=== PATIENT | male | born 1955 | race Caucasian/White ===

== ENCOUNTER → 2020-05-10 | Outpatient (CLI) | payer MEDICARE | LOC: GMA MATASK 10:51 | PROVIDERS: ATTEND Family Medicine | DX: Z12.5 Encounter for screening for malignant neoplasm of prostate (principal); I10 Essential (primary) hypertension | CPT/HCPCS: 84443; 84550; G0103 ==

== ENCOUNTER 2020-07-09 12:14 | Emergency (ER) | payer MEDICARE | END 2020-07-09 14:53 | disposition left against medical advice (07) | LOC: ER 12:14 | DX: M54.2 Cervicalgia (principal); Z53.21 Procedure and treatment not carried out due to patient leaving prior to being seen by health care provider ==

== ENCOUNTER → 2020-07-14 | Outpatient (CLI) | payer MEDICARE ==
--- NOTE | 2020-07-15 09:08 | MRI ---
EXAM DESCRIPTION: Cervical Spine: MRI. CLINICAL HISTORY: 64 years Male CERVICALGIA COMPARISON: Cervical radiographs July 10. TECHNIQUE: Multiplanar, high-field MRI, multiple sequences, non-contrast Cervical spine. FINDINGS: ACDF C4-C5 with interspace osseous fusion almost completely. Uncinate spur on the left neighboring the neuroforamen. Right neuroforamen and canal are patent. No complications. C5-C6: Disc space loss and endplate reactive changes bilaterally, more prominent right midline. Uncinate spur on the right with neural foraminal stenosis. 2 mm grade 1 retrolisthesis. Posterior disc bulge abutting the cord. Moderate narrowing left neural foramen. Bilateral facet joints are unremarkable. Posterior ligamentous thickening. Moderate canal narrowing. C6-C7: ACDF with essentially complete interspace osseous fusion with less effusion in the left side of the disc space. Mild narrowing of the left neural foramen. Canal and right neuroforamen are patent. No complications. C3-C4: Disc desiccation with anterior disc space loss and minimal endplate ridging. Grade 1 anterolisthesis 3 mm. Minimal posterior disc bulge. Uncinate spur on the right with moderate neural foraminal narrowing. Left neural foramen patent. Mild to moderate canal narrowing. Facet joints are unremarkable. C7-T1: Disc desiccation minimal posterior bulge. Disc space maintained. Canal and neural foramina are patent and facet are negative. Normal signal in the C2-C3 with no bulging. Trace anterolisthesis. Normal signal in the T1-T2 disc with no bulging. Disc spaces preserved. Canal and neural foramina are patent. Facet joints are negative. Spinal alignment kyphosis C2-C4. No cord compression or cord edema. Atlantoaxial joint with small periarticular cysts. Base of the cerebellar tonsils is at the level of the foramen magnum. Paravertebral soft tissues negative.. Vertebral bodies are not compressed at any level. Otherwise normal marrow signal in the remaining vertebral bodies and the posterior elements. IMPRESSION: 1. ACDF at C4-C5 and C6-C7 with no complications. Essentially complete inter-space osseous fusion at both levels. 2. Spondylosis at C5-C6 more severe on the right with neural foraminal stenosis. Correlate for right C5-6 radiculopathy. 3. C3-C4 disc desiccation and grade 1 anterolisthesis. Uncinate spur on the right with moderate neural foraminal narrowing. 4. Please refer to findings for discussion of results at other disc space levels. Electronically signed by: Charbel Arvizu MD 07/15/2020 9:06 AM [facility]
== END ==
LOC: MRI 07:48
PROVIDERS: ATTEND Family Medicine
DX: M47.22 Other spondylosis with radiculopathy, cervical region (principal); M43.12 Spondylolisthesis, cervical region; M25.78 Osteophyte, vertebrae; Z98.1 Arthrodesis status

== ENCOUNTER 2020-09-04 11:05 | Emergency (ER) | payer MEDICARE ==
[2020-09-04] MEDS ORDERED: LIDOCAINE 4% TOPICAL 40 MG/ML SYG TOP ONE ×2 (11:23→11:52)
[2020-09-04 11:51] VITALS: O2SAT 94
--- NOTE | 2020-09-04 11:55 | RAD ---
EXAMINATION: Chest,2 Views. HISTORY: 65 years Male. persistent hiccups. . . TECHNIQUE: XR CHEST 2 VIEWS COMPARISON: 05/10/2020 FINDINGS: Cervical spine surgical hardware is in place consisting of plate and screws. There is degenerative spondylosis of the thoracic spine. There is no pulmonary consolidation. No evidence of pleural effusion. No radiographically visible pneumothorax. Cardiac silhouette size is normal. No radiographic evidence of vascular congestion. IMPRESSION: No radiographic evidence of definite acute pulmonary disease in the visualized chest Electronically signed by: Kavon Tinoco MD 09/04/2020 11:53 AM [facility]
[2020-09-04] MEDS ORDERED: predniSONE 20 MG TAB PO ONE (12:07)
[2020-09-04] MEDS ORDERED: KETOROLAC TROMETHAMINE INJ 30 MG/ML VIAL IM ONE (12:07)
--- NOTE | 2020-09-04 12:11 | ED.PDOC ---
History of Present Illness - General Chief Complaint: General Stated Complaint: Shaking/jerking motion started last night Time Seen by Provider: 09/04/20 11:07 Source: patient Exam Limitations: no limitations - History of Present Illness Initial Comments: The patient is a 65-year-old male presented to the emergency secondary to what appears to be hiccups that started yesterday afternoon when he was putting in a new denture. He had had numerous teeth removed to have the denture plate formed. This was done just 4 or 5 days ago. No evidence of overt infection. The patient does have chronic lung disease and does have borderline hypoxia at baseline. He has not been doing his breathing treatments frequently and his oxygen levels do drop down to around 87% on room air at times before they rebound back into the low 90s. He has been on oxygen in the past but does not currently have any oxygen. Again he has not been doing his breathing treatments for the last 3 days. No syncope or near syncope. No sore throat. Oral procedural sites appear appropriate. Timing/Duration: 24 hours Severity: moderate Improving Factors: nothing Worsening Factors: nothing Associated Symptoms: denies symptoms Allergies/Adverse Reactions: Allergies NO KNOWN ALLERGY Allergy (Verified 09/04/20 11:51) Home Medications: Ambulatory Orders Sucralfate Tab [Carafate Tab] 1 gm PO QID #60 tab 09/04/20 chlorproMAZINE HCL [Thorazine] 25 mg PO Q6HR PRN #20 tab 09/04/20 predniSONE [Prednisone] 40 mg PO DAILY #7 day 09/04/20 Review of Systems - Review of Systems Constitutional: States: malaise EENTM: States: mouth pain Respiratory: States: no symptoms reported Cardiology: States: no symptoms reported Gastrointestinal/Abdominal: Denies: no symptoms reported Genitourinary: States: no symptoms reported Musculoskeletal: States: no symptoms reported Skin: States: no symptoms reported Neurological: States: no symptoms reported Endocrine: States: no symptoms reported All other Systems: No Change from Baseline Past Medical History (General) - Patient Medical History Hx Seizures: No Hx Stroke: No Hx of COPD: Yes Hx Cardiac Disorders: Yes - stents Hx Congestive Heart Failure: No Hx Hypertension: Yes Hx Diabetes: No Hx Gastroesophageal Reflux: Yes Hx Cancer: No Surgical History: appendectomy, other - Vaccination History Hx Influenza Vaccination: Yes Hx Pneumococcal Vaccination: Yes - Social History Hx Tobacco Use: Yes Hx Alcohol Use: Yes Hx Substance Use: No Hx Substance Use Treatment: No Hx Depression: No - Female History Patient is a Female of Child Bearing Age (10 -59 yrs old): No Patient : No Family Medical History - Family History Mother Family History: No Known Physical Exam - Physical Exam General Appearance: Alert, Anxious, No apparent distress Eye Exam: bilateral normal Ears, Nose, Throat: hearing grossly normal, other - See history of present illness Neck: full range of motion, supple Respiratory: lungs clear - Soft breath sounds. No obvious wheezing., normal breath sounds, no respiratory distress, no accessory muscle use Cardiovascular/Chest: normal peripheral pulses, regular rate, rhythm, no edema Peripheral Pulses: radial,right: 2+, radial,left: 2+ Gastrointestinal/Abdominal: non tender, soft Rectal Exam: deferred Back Exam: no vertebral tenderness Extremity: normal range of motion, no pedal edema, normal capillary refill Neurologic: tandem mill roller II-XII nml as tested, alert, normal mood/affect, oriented x 3 Skin Exam: normal color Comments: Vital Signs - 24 hr 09/04/20 09/04/20 11:05 11:06 Temperature 98.3 F Pulse Rate [ 97 H 97 H Pulse ox] Respiratory 20 20 Rate Blood Pressure 158/78 [L arm] O2 Sat by Pulse 94 L Oximetry Progress - Progress Progress: 09/04/20 12:12 The patient is a 65-year-old male presenting with what appears to be primarily uncontrolled hiccups. This may have been triggered by his recent procedure. He can continue to use an oral lidocaine on his gums to help reduce irritation. Additionally the patient does have borderline intermittent hypoxia related to chronic lung disease. He does need to get back on his nebulizer treatments about every 4 hours for the next few days. Reduction of hypoxia may also reduce the drive for the hiccups. He will be placed on oral prednisone for the next week which should help actually both processes above. He will also be written for 30 days of Thorazine for as needed use for the hiccups. He can expect to feel drowsy with this. I do want him to follow back up with his primary care doctor next week primarily for follow-up of his respiratory status. His oxygen levels are remaining low and he may need to go back on oxygen short- term. Chest x-ray and clinical exam do not indicate any evidence for pneumonia. He is already taking amoxicillin from his dentist. ER warnings are given for any worsening. richard [email or web address] - Results/Orders Results/Orders: Chest x-ray shows no obvious acute pathology. Chronic emphysematous changes are noted. EKG shows normal sinus rhythm at 97 bpm. Left axis deviation with left bundle branch block. There is also right bundle branch block. Difficult to interpret otherwise. Laboratory Tests 09/04/20 09/04/20 09/04/20 11:39 11:39 11:39 WBC 5.8 RBC 5.51 Hgb 14.9 Hct 45.5 MCV 82.6 MCH 27.0 MCHC 32.6 L RDW 13.7 Plt Count 194 MPV 7.1 L Absolute Neuts (auto) 4.20 Absolute Lymphs (auto) 0.80 L Absolute Monos (auto) 0.50 Absolute Eos (auto) 0.20 Absolute Basos (auto) 0.00 Neutrophils % 72.2 Lymphocytes % 14.4 L Monocytes % 9.4 H Eosinophils % 3.3 Basophils % 0.7 PT 9.9 INR 1.00 PTT (SP) 27.7 D-Dimer, Quantitative 360.0 Sodium 139 Potassium 4.3 Chloride 106 Carbon Dioxide 24 Anion Gap 13.3 BUN 14 Creatinine 1.29 BUN/Creatinine Ratio 10.9 Random Glucose 132 H Serum Osmolality 279.9 Calcium 9.3 Magnesium 2.2 Total Bilirubin 0.8 AST 25 ALT 27 Alkaline Phosphatase 74 Creatine Kinase 83 CK-MB (CK-2) 2.8 CK-MB (CK-2) % Not Reportable Troponin I < 0.02 B-Natriuretic Peptide 86.4 Serum Total Protein 7.6 Albumin 4.4 Globulin 3.2 Albumin/Globulin Ratio 1.4 TSH 1.14 - EKG/XRAY/CT CT Ordered: Yes Departure - Departure Clinical Impression: Hiccups Emphysema lung Qualifiers: Emphysema type: unspecified Qualified Code(s): J43.9 - Emphysema, unspecified Disposition: Discharge to Home or Self Care Condition: Fair Departure Forms: ED Discharge - Pt. Copy, Patient Portal Self Enrollment Instructions: Hiccups Diet: regular diet Activity: increase activity as tolerated Referrals: Dallas Judd MD [Primary Care Provider] - 1-2 Weeks Prescriptions: chlorproMAZINE HCL [Thorazine] 25 mg PO Q6HR PRN #20 tab PRN Reason: Gas Or Gas Pain Sucralfate Tab [Carafate Tab] 1 gm PO QID #60 tab predniSONE [Prednisone] 40 mg PO DAILY #7 day Home Medications: Ambulatory Orders Sucralfate Tab [Carafate Tab] 1 gm PO QID #60 tab 09/04/20 chlorproMAZINE HCL [Thorazine] 25 mg PO Q6HR PRN #20 tab 09/04/20 predniSONE [Prednisone] 40 mg PO DAILY #7 day 09/04/20 Additional Instructions: The patient is a 65-year-old male presenting with what appears to be primarily uncontrolled hiccups. This may have been triggered by his recent procedure. He can continue to use an oral lidocaine on his gums to help reduce irritation. Additionally the patient does have borderline intermittent hypoxia related to chronic lung disease. He does need to get back on his nebulizer treatments about every 4 hours for the next few days. Reduction of hypoxia may also reduce the drive for the hiccups. He will be placed on oral prednisone for the next week which should help actually both processes above. He will also be written for 30 days of Thorazine for as needed use for the hiccups. He can expect to feel drowsy with this. I do want him to follow back up with his primary care doctor next week primarily for follow-up of his respiratory status. His oxygen levels are remaining low and he may need to go back on oxygen short-term. Chest x-ray and clinical exam do not indicate any evidence for pneumonia. He is already taking amoxicillin from his dentist. I am going to place the patient on Carafate as well for 2 weeks, in case the amoxicillin is causing some gastroesophageal irritation triggering the hiccups. ER warnings are given for any worsening.
[2020-09-04 14:55] VITALS: BP 121/84; TEMP 98
== END 2020-09-04 13:15 | disposition home or self-care (01) ==
LOC: ER 11:05
DX: R06.6 Hiccough (principal); J43.9 Emphysema, unspecified; I45.2 Bifascicular block; K08.109 Complete loss of teeth, unspecified cause, unspecified class; I51.9 Heart disease, unspecified; I10 Essential (primary) hypertension; K21.9 Gastro-esophageal reflux disease without esophagitis; Z87.891 Personal history of nicotine dependence; Z98.890 Other specified postprocedural states; Z95.5 Presence of coronary angioplasty implant and graft; Z79.899 Other long term (current) drug therapy
CPT/HCPCS: 36415; 71046; 80053; 82550; 82553; 83735; 83880; 84443; 84484; 85025; 85379; 85610; 85730; 93005; J1885; J7512